=== PATIENT | male | born 1960 | race Caucasian/White ===

== ENCOUNTER 2024-04-03 17:41 | Inpatient (IN) | payer MEDICARE ==
[~2024-04-03] VITALS: Ht 182.9 cm; Wt 127.5 kg
[2024-04-03 21:37] VITALS: BP 120/79; TEMP 98; O2SAT 93
[2024-04-03] MEDS ORDERED: CLONAZEPAM 0.5 MG TABLET PO PRN (21:45)
[2024-04-03] MEDS ORDERED: MAG HYDROX/AL HYDROX/SIMETH 30 ML LIQUID UDC PO PRN (21:45)
[2024-04-03] MEDS ORDERED: TEMAZEPAM 7.5 MG CAPSULE PO PRN ×2 (21:45)
[2024-04-03] MEDS ORDERED: MAGNESIUM HYDROXIDE 30 ML LIQUID UDC PO PRN (21:45)
[2024-04-03] MEDS: BLOOD SUGAR DIAGNOSTIC 1 EACH STRIP VI ONE (22:29)
[2024-04-04 07:45] VITALS: BP 129/74; TEMP 98; O2SAT 98
[2024-04-04] MEDS: risperiDONE 1 MG TABLET PO SCH (08:27)
[2024-04-04 15:36] VITALS: BP 145/84; TEMP 98; O2SAT 98
[2024-04-04 20:00] VITALS: BP 107/71; TEMP 98; O2SAT 95
[2024-04-05 08:02] VITALS: BP 129/76; TEMP 98; O2SAT 98
[2024-04-05 16:01] VITALS: BP 113/61; TEMP 98; O2SAT 98
[2024-04-05 20:00] VITALS: BP 137/86; TEMP 98; O2SAT 97
[2024-04-05] MEDS: CLONAZEPAM 0.5 MG TABLET PO PRN (20:41)
[2024-04-06 08:10] VITALS: BP 137/98; TEMP 98; O2SAT 96
[2024-04-06 15:38] VITALS: BP 129/79; TEMP 98; O2SAT 98
[2024-04-06] MEDS: ACETAMINOPHEN 325 MG TABLET PO PRN (18:01)
[2024-04-06 20:21] VITALS: BP 121/75; TEMP 98.1; O2SAT 95
[2024-04-07 08:00] VITALS: BP 115/77; TEMP 98; O2SAT 99
[2024-04-07] MEDS: risperiDONE 1 MG TABLET PO SCH (09:33)
[2024-04-07 15:35] VITALS: BP 109/80; TEMP 98; O2SAT 98
[2024-04-07 20:06] VITALS: BP 98/52; TEMP 98.1; O2SAT 95
[2024-04-08 07:57] VITALS: BP 117/69; TEMP 98.2; O2SAT 94
[2024-04-08 16:06] VITALS: BP 107/56; TEMP 98.4; O2SAT 96
[2024-04-08 20:10] VITALS: BP 115/69; TEMP 98.2; O2SAT 100
[2024-04-09 07:47] VITALS: BP 107/60; TEMP 97.9; O2SAT 100
[2024-04-09] MEDS ORDERED: risperiDONE 1 MG TABLET PO SCH (09:00)
[2024-04-09 15:45] VITALS: BP 117/65; TEMP 97.8; O2SAT 100
[2024-04-09] MEDS: risperiDONE 2 MG TABLET PO SCH (20:46)
[2024-04-09 21:43] VITALS: BP 125/80; TEMP 98; O2SAT 99
[2024-04-10 08:00] VITALS: BP 126/66; TEMP 98.2; O2SAT 95
[2024-04-10 15:04] VITALS: BP 120/72; TEMP 98.3; O2SAT 96
[2024-04-10 20:00] VITALS: BP 123/101; TEMP 98; O2SAT 99
[2024-04-11 10:48] VITALS: BP 104/74; TEMP 97.9; O2SAT 99
[2024-04-11 19:57] VITALS: BP 112/76; TEMP 98.1; O2SAT 98
[2024-04-12 07:57] VITALS: BP 112/72; TEMP 98; O2SAT 98
[2024-04-12] MEDS: VITAMINS A AND D OINT 42 GM TUBE TP SCH (09:06)
[2024-04-12] MEDS: REMEDY ESSENTIAL ZINC PASTE 113 GM TOP SCH (12:38)
[2024-04-12 15:21] VITALS: BP 111/73; TEMP 98; O2SAT 99
[2024-04-12] MEDS: CLOTRIMAZOLE 1% CREAM 30 GM TUBE TOP SCH (16:54)
[2024-04-12 19:51] VITALS: BP 104/72; TEMP 98.1; O2SAT 100
[2024-04-12] MEDS: risperiDONE 2 MG TABLET PO SCH (21:29)
[2024-04-13 09:07] VITALS: BP 108/60; TEMP 98; O2SAT 98
[2024-04-13 15:31] VITALS: BP 126/79; TEMP 98; O2SAT 98
[2024-04-13 20:15] VITALS: BP 120/66; TEMP 98; O2SAT 98
[2024-04-14 08:23] LABS: BASOPHILS % (AUTO) 0.4 % (0.0-2.0); EOSINOPHILS # (AUTO) 0.3 K/uL (0.0-0.7); EOSINOPHILS % (AUTO) 4.7 % (0.0-7.0); HEMATOCRIT 37.7 % (36.7-47.1); HEMOGLOBIN 12.6 g/dL (12.5-16.3); LYMPHOCYTES # (AUTO) 1.4 K/uL (0.8-4.8); LYMPHOCYTES % (AUTO) 21.9 % (20.5-51.5); MEAN CORPUSCULAR HEMOGLOBIN 30.7 uug (23.8-33.4); MEAN CORPUSCULAR HGB CONC 33 g/dL (32.5-36.3); MEAN CORPUSCULAR VOLUME 91.9 fL (73.0-96.2); MONOCYTES # (AUTO) 0.8 K/uL (0.1-1.30); MONOCYTES % (AUTO) 12.3 % (0.0-11.0); NEUTROPHILS # (AUTO) 3.9 K/uL (1.8-8.9); NEUTROPHILS % (AUTO) 60.7 % (38.5-71.5); PLATELET COUNT (AUTO) 326 K/uL (152-348); RED CELL DISTRIBUTION WIDTH 14.7 % (12.1-16.2); WHITE BLOOD COUNT (AUTO) 6.4 K/uL (3.6-10.2)
[2024-04-14 08:26] LABS: DIFFERENTIAL COMMENT 1
[2024-04-14 08:35] LABS: CALCIUM 9.2 mg/dL (8.5-10.1); CARBON DIOXIDE 32 mmol/L (21-32); CHLORIDE 104 mmol/L (98-107); CREATININE 0.6 mg/dL (0.6-1.3); GLUCOSE 91 mg/dL (74-106); MAGNESIUM 1.9 mg/dL (1.8-2.4); POTASSIUM 4.1 mmol/L (3.5-5.1); SODIUM SERUM 142 mmol/L (136-145); UREA NITROGEN, BLOOD 12 mg/dL (7-18)
[2024-04-14 08:44] VITALS: BP 144/91; TEMP 98; O2SAT 98
== END 2024-04-14 14:30 | DRG 885 ==
LOC: GPS 18:43
PROVIDERS: ADMIT Psychiatry & Neurology Psychiatry
DX: F20.9 Schizophrenia, unspecified (principal); Z59.02 Unsheltered homelessness; I87.313 Chronic venous hypertension (idiopathic) with ulcer of bilateral lower extremity; L97.821 Non-pressure chronic ulcer of other part of left lower leg limited to breakdown of skin; L97.818 Non-pressure chronic ulcer of other part of right lower leg with other specified severity; D68.59 Other primary thrombophilia; I10 Essential (primary) hypertension; E83.19 Other disorders of iron metabolism; I89.0 Lymphedema, not elsewhere classified; E66.01 Morbid (severe) obesity due to excess calories; Z68.38 Body mass index [BMI] 38.0-38.9, adult
CPT/HCPCS: 36415; 71045; 83735; 84100; 85025; 93005